=== PATIENT | male | born 1980 | race American Indian/Alaskan Native ===

== ENCOUNTER 2019-01-28 17:59 | Inpatient (IN) | payer SELFPAY ==
[2019-01-28] MEDS ORDERED: NACL 0.9% 1000 ML IV ONE (18:13)
--- NOTE | 2019-01-28 18:13 | Emergency Department Report ---
Blank Doc - Documentation Documentation: pt states that he N/V that began two days ago generalized body aches +fever for two weeks states he has been waking up in sweats no cough no SOB no abd pain pt c/o left sided cp that began today "states his heart feels like it trying to escape his chest" no sick contacts no sore throat no PMHx no allergies to medications no daily meds former smoker, quit last week occ drinker no drug use
[2019-01-28 18:58] LABS: Hematocrit 49.2 % (35.5-45.6); Hemoglobin 15.9 gm/dl (11.8-15.2); Mean Corpuscular HGB Conc 32 % (32-34); Platelet Count 236 K/mm3 (140-440); Red Blood Count 7.07 M/mm3 (3.65-5.03); Red Cell Distribution Width 14.7 % (13.2-15.2)
[2019-01-28 19:08] LABS: Mean Corpuscular Volume 70 fl (84-94)
--- NOTE | 2019-01-28 19:17 | Emergency Department Report ---
ED General Adult HPI - General Chief complaint: Nausea/Vomiting/Diarrhea Stated complaint: VOMITING BLOOD/N/V Time Seen by Provider: 01/28/19 18:10 Source: EMS Mode of arrival: Ambulatory Limitations: No Limitations - History of Present Illness Initial comments: Patient is a 38-year-old male that presents emergency room for nausea vomiting and vomiting blood and fever and chills abdominal pain. Patient is also complaining of chest pain. Patient states he's had nausea and vomiting for 2 days and today he vomited blood. Patient states it was bright red blood. Patient states his epigastric pain started today as well. Patient states his epigastric pain is a 3-4 out of 10 and is intermittent. Patient states his epigastric pain is better with rest and worse with eating or movement. Patient states he has not been able to hold anything down for 2 days. Patient states he has not taken anything for his fever or chills. He states his chest pain started today as well. Patient states chest pain is intermittent and is a 3 out of 10. Patient states chest pain is better with rest and worse with exertion and vomiting. -: Sudden Location: abdomen Radiation: non-radiation Severity scale (0 -10): 7 Quality: stabbing, aching Consistency: intermittent Improves with: rest Worsens with: eating, movement, other (vomiting) Associated Symptoms: fever/chills, nausea/vomiting. denies: confusion, chest pain, cough, diaphoresis, headaches, loss of appetite, rash, seizure, shortness of breath, syncope, weakness Treatments Prior to Arrival: none - Related Data Allergies Allergy/AdvReac Type Severity Reaction Status Date / Time No Known Allergies Allergy Verified 01/28/19 18:10 ED Review of Systems ROS: Stated complaint: VOMITING BLOOD/N/V Other details as noted in HPI Constitutional: chills, fever Eyes: denies: eye pain, eye discharge, vision change ENT: denies: ear pain, throat pain Respiratory: denies: cough, shortness of breath, wheezing Cardiovascular: chest pain. denies: palpitations Endocrine: no symptoms reported Gastrointestinal: abdominal pain, nausea, vomiting, constipation, hematemesis. denies: diarrhea Genitourinary: denies: urgency, dysuria Musculoskeletal: denies: back pain, joint swelling, arthralgia Skin: denies: rash, lesions Neurological: denies: headache, weakness, paresthesias Psychiatric: denies: anxiety, depression Hematological/Lymphatic: denies: easy bleeding, easy bruising ED Past Medical Hx - Past Medical History Previous Medical History?: No - Surgical History Past Surgical History?: No - Family History Family history: no significant - Social History Smoking Status: Current Every Day Smoker Substance Use Type: Alcohol ED Physical Exam - General Limitations: No Limitations General appearance: alert, in no apparent distress - Head Head exam: Present: atraumatic, normocephalic - Eye Eye exam: Present: normal appearance - ENT ENT exam: Present: mucous membranes moist - Neck Neck exam: Present: normal inspection - Respiratory Respiratory exam: Present: normal lung sounds bilaterally. Absent: respiratory distress, wheezes, rales - Cardiovascular Cardiovascular Exam: Present: regular rate, normal rhythm. Absent: systolic murmur, diastolic murmur, rubs, gallop - GI/Abdominal GI/Abdominal exam: Present: soft, tenderness (epigastric tenderness), normal bowel sounds - Rectal Rectal exam: Present: deferred - Extremities Exam Extremities exam: Present: normal inspection - Back Exam Back exam: Present: normal inspection - Neurological Exam Neurological exam: Present: alert, oriented X3 - Psychiatric Psychiatric exam: Present: normal affect, normal mood - Skin Skin exam: Present: warm, dry, intact, normal color. Absent: rash ED Course Vital Signs 01/28/19 01/28/19 01/28/19 18:10 19:45 22:55 Temperature 101.2 F H Pulse Rate 128 H 102 H 104 H Respiratory 16 18 18 Rate Blood Pressure 118/70 107/52 114/60 [Left] O2 Sat by Pulse 98 100 100 Oximetry 01/28/19 23:18 Temperature Pulse Rate 90 Respiratory 18 Rate Blood Pressure 108/62 [Left] O2 Sat by Pulse 100 Oximetry - Reevaluation(s) Reevaluation #1: Patient more comfortable. The patient was having some nausea and was given Zofran as resolved his nausea. 01/28/19 20:23 - Consultations Consultation #1: GI paged 01/28/19 22:[address] Duran, GI. Dr. Duran wants patient to have a PPI and be admitted to the hospitalist service and nothing by mouth after midnight. 01/28/19 22:38 Consultation #2: Hospitalist consulted for admission. Hospitalist to admit patient. Hospitalist to assume care patient. 01/28/19 22:40 ED Medical Decision Making - Lab Data Result diagrams: 01/28/19 23:23 01/28/19 18:34 - EKG Data -: EKG Interpreted by Me EKG shows normal: sinus rhythm, axis, intervals, QRS complexes, ST-T waves Rate: tachycardia - Radiology Data Radiology results: report reviewed PROCEDURE: CT ABDOMEN PELVIS WO CON TECHNIQUE: Computerized axial tomography of the abdomen and pelvis was performed without intravenous contrast. This study is performed without intravascular contrast material and its sensitivity for abdominal and pelvic pathology, including neoplasms, inflammation, abscess, free fluid, thrombosis, arterial dissection and infarction, is reduced compared with a contrast enhanced study. CT DOSE LENGTH PRODUCT: 1271.7 mGycm HISTORY: abd pain COMPARISONS: None . FINDINGS: Liver, spleen pancreas and adrenal glands are within normal limits. Bilateral kidneys demonstrate normal density without calculi or hydronephrosis. Aorta is of normal caliber. There is no free fluid or free air. Gallbladder is unremarkable. Small bowel loops are within normal limits. Appendix is normal. Vertebral height is normal. IMPRESSION: No acute intra-abdominal or pelvic pathology as visualized on this noncontrast study PROCEDURE: CT ANGIO CHEST TECHNIQUE: Computerized tomographic angiography of the chest was performed after the IV injection of iodinated nonionic contrast including image processing. The image data was postprocessed using 2-dimensional multiplanar reformatted (MPR) and 3-dimensional (MIP and/or volume rendered) techniques. Automated exposure control, adjustment of mA and/or kV according to patient size, or iterative reconstruction dose optimization techniques were utilized. CT DOSE LENGTH PRODUCT: 943.2 mGycm HISTORY: elevated d-dimer. cp COMPARISONS: None . FINDINGS: Visualization of fine detail in portions of the chest is limited by motion artifact. There is no evidence of infiltrate, pneumothorax or pleural fluid collection. The trachea and bronchi are patent. The heart appears to be upper limits of normal size to mildly enlarged. The thoracic aorta is normal caliber. There is no evidence of intrathoracic adenopathy. No filling defects are demonstrated within the pulmonary arteries to suggest the presence of pulmonary artery emboli. However, segmental pulmonary artery emboli could be missed or overcalled due to motion artifact. The visualized portion of the upper abdomen is unremarkable. The bony structures are notable for spondylitic change of the thoracic spine with multiple level canal stenosis. IMPRESSION: 1. Study somewhat degraded by motion artifact. 2. No evidence of an acute intrathoracic process. 3. No evidence of pulmonary artery emboli. However, segmental pulmonary artery emboli could be missed or overcalled due to motion artifact. 4. 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 - Medical Decision Making Patient is a 38-year-old male presents emergency room for multiple complaints. Patient complaints including chest pain, upper gastric pain, vomiting blood. Nausea and vomiting. GI consult. Patient admitted to the hospitalist service. Patient's labs unremarkable except for hyponatremia and elevated d-dimer. Patient is CT of the abdomen done negative. Patient had a CTA of the chest for the elevated d-dimer and chest pain and it was negative for PE.. - Differential Diagnosis chest pain. Abdominal pain. Vomiting blood.N/V. Gastritis Critical Care Time: Yes Critical care attestation.: If time is entered above; I have spent that time in minutes in the direct care o f this critically ill patient, excluding procedure time. Critical Care Time: 45 MINUTES ED Disposition Clinical Impression: Hematemesis with nausea, Dehydration Vomiting blood Qualifiers: Nausea presence: with nausea Qualified Code(s): K92.0 - Hematemesis Chest pain Qualifiers: Chest pain type: unspecified Qualified Code(s): R07.9 - Chest pain, unspecified Nausea & vomiting Qualifiers: Vomiting type: unspecified Vomiting Intractability: intractable Qualified Code(s): R11.2 - Nausea with vomiting, unspecified Abdominal pain Qualifiers: Abdominal location: epigastric Qualified Code(s): R10.13 - Epigastric pain Gastritis Qualifiers: Gastritis type: unspecified gastritis Chronicity: acute Gastritis bleeding: with bleeding Qualified Code(s): K29.01 - Acute gastritis with bleeding Disposition: 09 OP ADMIT IP TO THIS HOSP Is pt being admited?: Yes Does the pt Need Aspirin: No Condition: Critical Time of Disposition: 22:41
[2019-01-28 19:24] LABS: Alanine Aminotransferase 23 units/L (7-56); Albumin 3.2 g/dL (3.9-5); BUN/Creatinine Ratio 7; Blood Urea Nitrogen 8 mg/dL (9-20); Hemolysis Index 7
[2019-01-28] MEDS ORDERED: ZOFRAN IV ONE (20:09)
--- NOTE | 2019-01-28 20:19 | Cat Scan Report ---
PROCEDURE: CT ABDOMEN PELVIS WO CON TECHNIQUE: Computerized axial tomography of the abdomen and pelvis was performed without intravenous contrast. This study is performed without intravascular contrast material and its sensitivity for ab dominal and pelvic pathology, including neoplasms, inflammation, abscess, free fluid, thrombosis, art erial dissection and infarction, is reduced compared with a contrast enhanced study. CT DOSE LENGTH PRODUCT: 1271.7 mGycm HISTORY: abd pain COMPARISONS: None . FINDINGS: Liver, spleen pancreas and adrenal glands are within normal limits. Bilateral kidneys demonstrate nor mal density without calculi or hydronephrosis. Aorta is of normal caliber. There is no free fluid or free air. Gallbladder is unremarkable. Small bowel loops are within normal limits. Appendix is normal . Vertebral height is normal. IMPRESSION: No acute intra-abdominal or pelvic pathology as visualized on this noncontrast study This document is electronically signed by Emil French MD., Jan 28 2019 08:17:32 PM ET
--- NOTE | 2019-01-28 20:19 | XRay Report ---
PROCEDURE: XR CHEST 1V AP TECHNIQUE: Chest radiograph single view. HISTORY: CP COMPARISONS: None . FINDINGS: Heart: Normal. Mediastinum/Vessels: Normal. Lungs/Pleural space: Normal. Bony thorax: No acute osseous abnormality. Life support devices: None. IMPRESSION: No acute cardiopulmonary abnormality. This document is electronically signed by Emil French MD., Jan 28 2019 08:17:43 PM ET
[2019-01-28] MEDS ORDERED: NACL 0.9% 1000 ML 1,000 ML IV ONE (20:55)
[2019-01-28 21:09] LABS: Band Neutrophils # (Manual) 0.4 K/mm3; Total Cells Counted 100
[2019-01-28 21:10] LABS: Giant Platelets Few; Platelet Estimate Consistent w Auto
--- NOTE | 2019-01-28 21:58 | Cat Scan Report ---
PROCEDURE: CT ANGIO CHEST TECHNIQUE: Computerized tomographic angiography of the chest was performed after the IV injection of iodinated nonionic contrast including image processing. The image data was postprocessed using 2-di mensional multiplanar reformatted (MPR) and 3-dimensional (MIP and/or volume rendered) techniques. Au tomated exposure control, adjustment of mA and/or kV according to patient size, or iterative reconstr uction dose optimization techniques were utilized. CT DOSE LENGTH PRODUCT: 943.2 mGycm HISTORY: elevated d-dimer. cp COMPARISONS: None . FINDINGS: Visualization of fine detail in portions of the chest is limited by motion artifact. There is no evidence of infiltrate, pneumothorax or pleural fluid collection. The trachea and bronchi are patent. The heart appears to be upper limits of normal size to mildly enlarged. The thoracic aorta is normal caliber. There is no evidence of intrathoracic adenopathy. No filling defects are demonstrated within the pulmonary arteries to suggest the presence of pulmonar y artery emboli. However, segmental pulmonary artery emboli could be missed or overcalled due to matt on artifact. The visualized portion of the upper abdomen is unremarkable. The bony structures are notable for spondylitic change of the thoracic spine with multiple level charito l stenosis. IMPRESSION: 1. Study somewhat degraded by motion artifact. 2. No evidence of an acute intrathoracic process. 3. No evidence of pulmonary artery emboli. However, segmental pulmonary artery emboli could be missed or overcalled due to motion artifact. 4. 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 This document is electronically signed by Taty Honeycutt MD., Jan 28 2019 09:56:28 PM ET
[2019-01-28] MEDS ORDERED: PROTONIX IV ONE (22:41)
[2019-01-28] MEDS ORDERED: TYLENOL PO PRN (22:59)
[2019-01-28] MEDS ORDERED: MORPHINE IV PRN (22:59)
[2019-01-28] MEDS ORDERED: SODIUM CHLORIDE FLUSH SYRINGE 10 ML IV PRN (22:59)
[2019-01-28] MEDS ORDERED: ZOFRAN IV PRN (22:59)
--- NOTE | 2019-01-28 23:26 | History and Physical Report ---
History of Present Illness Date of examination: 01/28/19 History of present illness: 38 -year-old male with no medical problem comes to the emergency room with complaints of nausea and vomiting, vomiting blood since Thursday, he's had a total of 4 episodes. Also complaining of right upper quadrant pain, dull, intermittent for a few seconds, intensity 5/10, no radiation, cannot identify exacerbating or relieving factors. He's had this pain for one month more. Also complaining of chest pain, left substernal that started on his way to the hospital, stabbing, intermittent every 5 minutes, intensity 4/10, no radiation, associated with palpitation, no diaphoresis, shortness of breath Review of systems Constitutional: no weight loss, chills, fever Ears, eyes, nose, mouth and throat: no nasal congestion, no nasal discharge, no sinus pressure, no vision change, no red eye. Neck: No neck pain or rigidity. Cardiovascular: no palpitations, chest pain Respiratory: no cough, shortness of breath Gastrointestinal: no hematochezia, abdominal pain Genitourinary : no frequency , no hematuria Musculoskeletal: no joint swelling or muscle ache Integumentary: no rash, no pruritis Neurological: no parathesias, no focal weakness Endocrine: no cold or heat intolerance, no polyuria or polydipsia Hematologic/Lymphatic: no easy bruising, no easy bleeding, no gland swelling Allergic/Immunologic: no urticaria, no angioedema. PAST MEDICAL HISTORY:none PAST SURGICAL HISTORY: none SOCIAL HISTORY: +alcohol, + marijuana, quit tobacco 1 week ago FAMILY HISTORY: Hypertension Medications and Allergies Allergies Allergy/AdvReac Type Severity Reaction Status Date / Time No Known Allergies Allergy Verified 01/28/19 18:10 Home Medications Medication Instructions Recorded Confirmed Last Taken Type Pantoprazole [Protonix] 40 mg PO QDAY #30 tablet 01/30/19 Unknown Rx Active Meds: Active Medications Acetaminophen (Tylenol) 650 mg PO Q4H PRN PRN Reason: Pain MILD(1-3)/Fever >100.5/OMER Sodium Chloride (Nacl 0.9% 1000 Ml) 1,000 mls @ 150 mls/hr IV DIRECT TERESA Morphine Sulfate (Morphine) 2 mg IV Q4H PRN PRN Reason: Pain, Moderate (4-6) Ondansetron HCl (Zofran) 4 mg IV Q4H PRN PRN Reason: Nausea And Vomiting Pantoprazole Sodium (Protonix) 40 mg IV BID TERESA Sodium Chloride (Sodium Chloride Flush Syringe 10 Ml) 10 ml IV BID TERESA Sodium Chloride (Sodium Chloride Flush Syringe 10 Ml) 10 ml IV PRN PRN PRN Reason: LINE FLUSH Exam - Physical Exam Narrative exam: General Apperance: The patient lying in bed, breathing comfortable HEENT: Normocephalic, atraumatic. Pupils equally round and reactive to light, EOMI, no sclericterus or JVD or thyromegaly or nodule. , no carotid bruit, mucous membranes moist, no exudate or erythema Heart: S1-S2, regular is rhythm Lungs: Clear to auscultation bilaterally, breathing comfortable Abdomen: Positive bowel sounds, soft, nontender, nondistended, no organomegaly Extremities: No edema cyanosis clubbing Skin: no rash, nodule, warm and dry Neuro: cranial nerves 2-12 intact, speech is fluent, motor/sensory intact - Constitutional Vitals: Temp Pulse Resp BP Pulse Ox 101.2 F H 104 H 18 114/60 100 01/28/19 18:10 01/28/19 22:55 01/28/19 22:55 01/28/19 22:55 01/28/19 22:55 Results - Labs CBC & Chem 7: 01/30/19 07:55 01/30/19 07:55 Labs: Abnormal lab results 01/28/19 01/28/19 01/28/19 Range/Units 18:34 18:34 18:34 RBC 7.07 H (3.65-5.03) M/mm3 Hgb 15.9 H (11.8-15.2) gm/dl Hct 49.2 H (35.5-45.6) % MCV 70 L (84-94) fl MCH 23 L (28-32) pg Lymphocytes % (Manual) 36.0 H (13.4-35.0) % Monocytes % (Manual) 12.0 H (0.0-7.3) % Monocytes # (Manual) 1.3 H (0.0-0.8) K/mm3 D-Dimer 1506.08 H (0-234) ng/mlDDU Sodium 132 L (137-145) mmol/L BUN 8 L (9-20) mg/dL Glucose 151 H (75-100) mg/dL Calcium 8.0 L (8.4-10.2) mg/dL Albumin 3.2 L (3.9-5) g/dL - Imaging and Cardiology CT scan - abdomen: report reviewed CT scan - chest: report reviewed CT scan - pelvis: report reviewed Assessment and Plan Assessment Hematemesis Chest pain SIRS Abdominal pain, nonspecific Plan Admit to medicine Start IV fluids, Protonix, check serial hemoglobin Consult GI, check cardiac enzymes, stress test, UA DVT prophylaxis, start emperic antibiotic, IV morphine
[2019-01-28 23:30] LABS: Hematocrit 42.1 % (35.5-45.6); Hemoglobin 14.1 gm/dl (11.8-15.2)
[2019-01-28 23:47] LABS: Creatine Kinase MB 1.3 ng/mL (0.0-4.0)
[2019-01-29] MEDS ORDERED: ZOSYN/NS 4.5GM/100ML 4.5 GM/100 ML VIAL IV ONE (00:40)
[2019-01-29] MEDS: ZOSYN/NS 4.5GM/100ML 4.5 GM/100 ML VIAL IV SCH ×4 (00:51→21:38)
[2019-01-29 03:13] LABS: Hematocrit 44.6 % (35.5-45.6); Hemoglobin 14.3 gm/dl (11.8-15.2); Mean Corpuscular HGB Conc 32 % (32-34); Platelet Count 230 K/mm3 (140-440); Red Blood Count 6.39 M/mm3 (3.65-5.03); Red Cell Distribution Width 14.8 % (13.2-15.2)
[2019-01-29 03:35] LABS: Mean Corpuscular Volume 70 fl (84-94)
[2019-01-29 03:42] LABS: BUN/Creatinine Ratio 8; Blood Urea Nitrogen 9 mg/dL (9-20); Calcium 8.1 mg/dL (8.4-10.2); Hemolysis Index 2
[2019-01-29] MEDS: NACL 0.9% 1000 ML 1,000 ML IV SCH ×2 (04:05→14:17)
[2019-01-29 04:49] LABS: Creatine Kinase MB 1.3 ng/mL (0.0-4.0)
[2019-01-29 07:26] LABS: Hematocrit 41.7 % (35.5-45.6); Hemoglobin 13.8 gm/dl (11.8-15.2)
[2019-01-29] MEDS ORDERED: LEXISCAN IV ONE ×2 (08:11→08:23)
[2019-01-29 09:17] LABS: Band Neutrophils # (Manual) 0.2 K/mm3; Basophils % (Manual) 0 % (0.0-1.8); Total Cells Counted 100
[2019-01-29 09:18] LABS: Anisocytosis 1+
--- NOTE | 2019-01-29 10:10 | Event Note ---
Date: 01/29/19 Consult received. Patient off the floor for stress test at the time of visit. Labs/chart reviewed. Will follow-up at later time with full consult to follow.
[2019-01-29] MEDS: PROTONIX IV SCH ×2 (10:47→21:38)
[2019-01-29] MEDS: SODIUM CHLORIDE FLUSH SYRINGE 10 ML IV SCH ×2 (10:47→21:38)
--- NOTE | 2019-01-29 11:38 | Progress Note ---
Assessment and Plan Assessment and plan: --Hematemesis; no new episodes of GI bleeding H&H stable, closely monitor, pending GI evaluation Clear liquids and advance as tolerated NPO Midnight for possible GI procedure tomorrow --Atypical Chest pain; sress test is scheduled for today Continue current cardiac medications, follow stress --SIRS: per criteria --Abdominal pain, nonspecific; improved CT abdominal pain acute abnormalities noted --Moderate malnutrition/hypoalbuminemia; supportive care Nutrition supplements --Obesity BMI 33.4, advised weight reduction and medically stable --DVT prophylaxis SCDs, no pharmacologic anticoagulation As patient has GI bleeding Monitor closely and adjust management as needed; History Interval history: Patient seen and examined medical records reviewed Patient was admitted with hematemesis and atypical chest pain No new episodes of hematemesis since admission Patient underwent stress test Patient denies chest pain or shortness of breath Vital signs reviewed Hospitalist Physical - Constitutional Vitals: Temp Pulse Resp BP Pulse Ox 98.6 F 91 H 18 125/77 95 01/29/19 08:37 01/29/19 04:14 01/29/19 08:37 01/29/19 08:37 01/29/19 04:14 General appearance: Present: no acute distress, well-nourished - EENT Eyes: Present: PERRL, EOM intact - Neck Neck: Present: supple, normal ROM - Respiratory Respiratory effort: normal Respiratory: bilateral: diminished, negative: rales, rhonchi, wheezing - Cardiovascular Rhythm: regular Heart Sounds: Present: S1 & S2 - Extremities Extremities: no ischemia, No edema - Abdominal General gastrointestinal: soft, non-tender, non-distended, normal bowel sounds - Integumentary Integumentary: Present: clear, warm - Psychiatric Psychiatric: appropriate mood/affect, cooperative - Neurologic Neurologic: CNII-XII intact, moves all extremities Results - Labs CBC & Chem 7: 01/29/19 07:15 01/29/19 02:59 Labs: Laboratory Last Values WBC 12.4 K/mm3 (4.5-11.0) H 01/29/19 02:59 RBC 6.39 M/mm3 (3.65-5.03) H 01/29/19 02:59 Hgb 13.8 gm/dl (11.8-15.2) 01/29/19 07:15 Hct 41.7 % (35.5-45.6) 01/29/19 07:15 MCV 70 fl (84-94) L 01/29/19 02:59 MCH 22 pg (28-32) L 01/29/19 02:59 MCHC 32 % (32-34) 01/29/19 02:59 RDW 14.8 % (13.2-15.2) 01/29/19 02:59 Plt Count 230 K/mm3 (140-440) 01/29/19 02:59 [place] % (Auto) Tobacco Sieve Operator 01/29/19 02:59 Lymph # Tobacco Sieve Operator 01/29/19 02:59 Add Manual Diff Complete 01/29/19 02:59 Total Counted 100 01/29/19 02:59 Seg Neutrophils % Tobacco Sieve Operator 01/29/19 02:59 Seg Neuts % (Manual) 39.0 % (40.0-70.0) L 01/29/19 02:59 2.0 % 01/29/19 02:59 35.0 % (13.4-35.0) 01/29/19 02:59 Reactive Lymphs % (Man) 2.0 % 01/29/19 02:59 18.0 % (0.0-7.3) H 01/29/19 02:59 1.0 % (0.0-4.3) 01/29/19 02:59 0 % (0.0-1.8) 01/29/19 02:59 3.0 % 01/29/19 02:59 0 % 01/29/19 02:59 0 % 01/29/19 02:59 0 % 01/29/19 02:59 Nucleated RBC % Not Reportable 01/29/19 02:59 Seg Neutrophils # Man 4.8 K/mm3 (1.8-7.7) 01/29/19 02:59 Band Neutrophils # 0.2 K/mm3 01/29/19 02:59 4.3 K/mm3 (1.2-5.4) 01/29/19 02:59 Abs React Lymphs (Man) 0.2 K/mm3 01/29/19 02:59 2.2 K/mm3 (0.0-0.8) H 01/29/19 02:59 0.1 K/mm3 (0.0-0.4) 01/29/19 02:59 0.0 K/mm3 (0.0-0.1) 01/29/19 02:59 0.4 K/mm3 01/29/19 02:59 0.0 K/mm3 01/29/19 02:59 0.0 K/mm3 01/29/19 02:59 Blast Cells # 0.0 K/mm3 01/29/19 02:59 WBC Morphology Not Reportable 01/29/19 02:59 Hypersegmented Neuts Not Reportable 01/29/19 02:59 Hyposegmented Neuts Not Reportable 01/29/19 02:59 Hypogranular Neuts Not Reportable 01/29/19 02:59 Not Reportable 01/29/19 02:59 Not Reportable 01/29/19 02:59 Not Reportable 01/29/19 02:59 Not Reportable 01/29/19 02:59 Not Reportable 01/29/19 02:59 Not Reportable 01/29/19 02:59 Appears normal 01/29/19 02:59 Not Reportable 01/29/19 02:59 Plt Clumps, EDTA Not Reportable 01/29/19 02:59 Not Reportable 01/29/19 02:59 Not Reportable 01/29/19 02:59 Not Reportable 01/29/19 02:59 Plt Morphology Comment Not Reportable 01/29/19 02:59 RBC Morphology Not Reportable 01/29/19 02:59 Dimorphic RBCs Not Reportable 01/29/19 02:59 Not Reportable 01/29/19 02:59 Not Reportable 01/29/19 02:59 Not Reportable 01/29/19 02:59 1+ 01/29/19 02:59 Not Reportable 01/29/19 02:59 Not Reportable 01/29/19 02:59 Not Reportable 01/29/19 02:59 Not Reportable 01/29/19 02:59 Not Reportable 01/29/19 02:59 Not Reportable 01/29/19 02:59 Not Reportable 01/29/19 02:59 Not Reportable 01/29/19 02:59 Not Reportable 01/29/19 02:59 Not Reportable 01/29/19 02:59 Not Reportable 01/29/19 02:59 Not Reportable 01/29/19 02:59 Not Reportable 01/29/19 02:59 Not Reportable 01/29/19 02:59 Not Reportable 01/29/19 02:59 Acanthocytes (Spur) Not Reportable 01/29/19 02:59 Rouleaux Not Reportable 01/29/19 02:59 Not Reportable 01/29/19 02:59 Not Reportable 01/29/19 02:59 Not Reportable 01/29/19 02:59 Not Reportable 01/29/19 02:59 Hem Pathologist Commnt No 01/29/19 02:59 1506.08 ng/mlDDU (0-234) H 01/28/19 18:34 Sodium 137 mmol/L (137-145) 01/29/19 02:59 Potassium 4.5 mmol/L (3.6-5.0) 01/29/19 02:59 Chloride 100.9 mmol/L (98-107) 01/29/19 02:59 Carbon Dioxide 24 mmol/L (22-30) 01/29/19 02:59 17 mmol/L 01/29/19 02:59 BUN 9 mg/dL (9-20) 01/29/19 02:59 1.2 mg/dL (0.8-1.5) 01/29/19 02:59 Estimated GFR > 60 ml/min 01/29/19 02:59 8 % 01/29/19 02:59 Glucose 119 mg/dL (75-100) H 01/29/19 02:59 Lactic Acid 1.40 mmol/L (0.7-2.0) 01/28/19 21:01 Calcium 8.1 mg/dL (8.4-10.2) L 01/29/19 02:59 0.40 mg/dL (0.1-1.2) 01/28/19 18:34 AST 38 units/L (5-40) 01/28/19 18:34 ALT 23 units/L (7-56) 01/28/19 18:34 63 units/L (35-129) 01/28/19 18:34 175 units/L (55-170) H 01/29/19 04:35 CK-MB (CK-2) 1.3 ng/mL (0.0-4.0) 01/29/19 04:35 CK-MB (CK-2) Rel Index 0.7 (0-4) 01/29/19 04:35 < 0.010 ng/mL (0.00-0.029) 01/29/19 04:35 6.7 g/dL (6.3-8.2) 01/28/19 18:34 3.2 g/dL (3.9-5) L 01/28/19 18:34 0.9 % 01/28/19 18:34 39 units/L (13-60) 01/28/19 18:34 Active Medications - Current Medications Current Medications: Generic Name Dose Route Start Last Admin Trade Name Freq PRN Reason Stop Dose Admin Acetaminophen 650 mg 01/28/19 22:59 Tylenol PO Q4H PRN Pain MILD(1-3)/Fever >100.5/OMER Sodium Chloride 1,000 mls @ 150 mls/hr 01/28/19 23:00 01/29/19 04:05 Nacl 0.9% 1000 Ml IV 150 mls/hr DIRECT TERESA Administration Piperacillin Sod/Tazobactam Sod 4.5 gm in 100 mls @ 200 mls/hr 01/28/19 23:45 01/29/19 05:36 Zosyn/Ns 4.5gm/100ml IV 200 mls/hr Q8HR TERESA Administration Protocol Morphine Sulfate 2 mg 01/28/19 22:59 Morphine IV Q4H PRN Pain, Moderate (4-6) Ondansetron HCl 4 mg 01/28/19 22:59 Zofran IV Q4H PRN Nausea And Vomiting Pantoprazole Sodium 40 mg 01/29/19 10:00 01/29/19 10:47 Protonix IV 40 mg BID TERESA Administration Sodium Chloride 10 ml 01/29/19 10:00 01/29/19 10:47 Sodium Chloride Flush Syringe 10 Ml IV 10 ml BID TERESA Administration Sodium Chloride 10 ml 01/28/19 22:59 Sodium Chloride Flush Syringe 10 Ml IV PRN PRN LINE FLUSH
[2019-01-30] MEDS: ZOSYN/NS 4.5GM/100ML 4.5 GM/100 ML VIAL IV SCH (05:35)
[2019-01-30 08:13] LABS: Hematocrit 39.1 % (35.5-45.6); Hemoglobin 12.8 gm/dl (11.8-15.2); Mean Corpuscular HGB Conc 33 % (32-34); Platelet Count 223 K/mm3 (140-440); Red Blood Count 5.66 M/mm3 (3.65-5.03); Red Cell Distribution Width 14.8 % (13.2-15.2)
[2019-01-30 08:16] LABS: Mean Corpuscular Volume 69 fl (84-94)
[2019-01-30 08:30] LABS: BUN/Creatinine Ratio 5; Blood Urea Nitrogen 6 mg/dL (9-20); Calcium 7.8 mg/dL (8.4-10.2); Chol/HDL Ratio 5.37 %; HDL Cholesterol 16 mg/dL (40-59); Hemolysis Index 1; LDL Cholesterol,Direct 41 mg/dL (50-130)
--- NOTE | 2019-01-30 08:44 | Progress Note ---
Assessment and Plan Assessment and plan: --Hematemesis; no new episodes of GI bleeding H&H dropped, closely monitor, pending GI evaluation --Acute blood loss; hemoglobin dropped from 15.9-12.8 Closely monitor --Atypical Chest pain; s/p sress test , pending report Continue current cardiac medications --SIRS: per criteria --Abdominal pain, nonspecific; improved CT abdominal pain acute abnormalities noted --Moderate malnutrition/hypoalbuminemia albumin 3.2; supportive care Nutrition supplements --Obesity BMI 33.4, advised weight reduction and medically stable --DVT prophylaxis SCDs, no pharmacologic anticoagulation As patient has GI bleeding Monitor closely and adjust management as needed; Hospitalist Physical - Constitutional Vitals: Temp Pulse Resp BP Pulse Ox 98.6 F 81 18 96/57 95 01/30/19 07:27 01/30/19 07:27 01/30/19 07:27 01/30/19 07:27 01/30/19 07:27 General appearance: Present: no acute distress, well-nourished Results - Labs CBC & Chem 7: 01/30/19 07:55 01/30/19 07:55 Labs: Laboratory Last Values WBC 8.5 K/mm3 (4.5-11.0) 01/30/19 07:55 RBC 5.66 M/mm3 (3.65-5.03) H 01/30/19 07:55 Hgb 12.8 gm/dl (11.8-15.2) 01/30/19 07:55 Hct 39.1 % (35.5-45.6) 01/30/19 07:55 MCV 69 fl (84-94) L 01/30/19 07:55 MCH 23 pg (28-32) L 01/30/19 07:55 MCHC 33 % (32-34) 01/30/19 07:55 RDW 14.8 % (13.2-15.2) 01/30/19 07:55 Plt Count 223 K/mm3 (140-440) 01/30/19 07:55 Coffee % (Auto) Candy Dipper 01/30/19 07:55 Lymph # Candy Dipper 01/29/19 02:59 Add Manual Diff Complete 01/29/19 02:59 Total Counted 100 01/29/19 02:59 Seg Neutrophils % Candy Dipper 01/29/19 02:59 Seg Neuts % (Manual) 39.0 % (40.0-70.0) L 01/29/19 02:59 2.0 % 01/29/19 02:59 35.0 % (13.4-35.0) 01/29/19 02:59 Reactive Lymphs % (Man) 2.0 % 01/29/19 02:59 18.0 % (0.0-7.3) H 01/29/19 02:59 1.0 % (0.0-4.3) 01/29/19 02:59 0 % (0.0-1.8) 01/29/19 02:59 3.0 % 01/29/19 02:59 0 % 01/29/19 02:59 0 % 01/29/19 02:59 0 % 01/29/19 02:59 Nucleated RBC % Not Reportable 01/29/19 02:59 Seg Neutrophils # Man 4.8 K/mm3 (1.8-7.7) 01/29/19 02:59 Band Neutrophils # 0.2 K/mm3 01/29/19 02:59 4.3 K/mm3 (1.2-5.4) 01/29/19 02:59 Abs React Lymphs (Man) 0.2 K/mm3 01/29/19 02:59 2.2 K/mm3 (0.0-0.8) H 01/29/19 02:59 0.1 K/mm3 (0.0-0.4) 01/29/19 02:59 0.0 K/mm3 (0.0-0.1) 01/29/19 02:59 0.4 K/mm3 01/29/19 02:59 0.0 K/mm3 01/29/19 02:59 0.0 K/mm3 01/29/19 02:59 Blast Cells # 0.0 K/mm3 01/29/19 02:59 WBC Morphology TNR 01/30/19 07:55 Hypersegmented Neuts Not Reportable 01/29/19 02:59 Hyposegmented Neuts Not Reportable 01/29/19 02:59 Hypogranular Neuts Not Reportable 01/29/19 02:59 Not Reportable 01/29/19 02:59 Not Reportable 01/29/19 02:59 Not Reportable 01/29/19 02:59 Not Reportable 01/29/19 02:59 Not Reportable 01/29/19 02:59 Not Reportable 01/29/19 02:59 Appears normal 01/29/19 02:59 Not Reportable 01/29/19 02:59 Plt Clumps, EDTA Not Reportable 01/29/19 02:59 Not Reportable 01/29/19 02:59 Not Reportable 01/29/19 02:59 Not Reportable 01/29/19 02:59 Plt Morphology Comment Not Reportable 01/29/19 02:59 RBC Morphology Not Reportable 01/29/19 02:59 Dimorphic RBCs Not Reportable 01/29/19 02:59 Not Reportable 01/29/19 02:59 Not Reportable 01/29/19 02:59 Not Reportable 01/29/19 02:59 1+ 01/29/19 02:59 Not Reportable 01/29/19 02:59 Not Reportable 01/29/19 02:59 Not Reportable 01/29/19 02:59 Not Reportable 01/29/19 02:59 Not Reportable 01/29/19 02:59 Not Reportable 01/29/19 02:59 Not Reportable 01/29/19 02:59 Not Reportable 01/29/19 02:59 Not Reportable 01/29/19 02:59 Not Reportable 01/29/19 02:59 Not Reportable 01/29/19 02:59 Not Reportable 01/29/19 02:59 Not Reportable 01/29/19 02:59 Not Reportable 01/29/19 02:59 Not Reportable 01/29/19 02:59 Acanthocytes (Spur) Not Reportable 01/29/19 02:59 Rouleaux Not Reportable 01/29/19 02:59 Not Reportable 01/29/19 02:59 Not Reportable 01/29/19 02:59 Not Reportable 01/29/19 02:59 Not Reportable 01/29/19 02:59 Hem Pathologist Commnt No 01/29/19 02:59 1506.08 ng/mlDDU (0-234) H 01/28/19 18:34 Sodium 134 mmol/L (137-145) L 01/30/19 07:55 Potassium 4.5 mmol/L (3.6-5.0) 05/26/19 07:55 Chloride 99.2 mmol/L (98-107) 01/30/19 07:55 Carbon Dioxide 27 mmol/L (22-30) 01/30/19 07:55 12 mmol/L 01/30/19 07:55 BUN 6 mg/dL (9-20) L 01/30/19 07:55 1.1 mg/dL (0.8-1.5) 01/30/19 07:55 Estimated GFR > 60 ml/min 01/30/19 07:55 5 % 01/30/19 07:55 Glucose 105 mg/dL (75-100) H 01/30/19 07:55 Lactic Acid 1.40 mmol/L (0.7-2.0) 01/28/19 21:01 Calcium 7.8 mg/dL (8.4-10.2) L 01/30/19 07:55 0.40 mg/dL (0.1-1.2) 01/28/19 18:34 AST 38 units/L (5-40) 01/28/19 18:34 ALT 23 units/L (7-56) 01/28/19 18:34 63 units/L (35-129) 01/28/19 18:34 175 units/L (55-170) H 01/29/19 04:35 CK-MB (CK-2) 1.3 ng/mL (0.0-4.0) 01/29/19 04:35 CK-MB (CK-2) Rel Index 0.7 (0-4) 01/29/19 04:35 < 0.010 ng/mL (0.00-0.029) 01/29/19 04:35 6.7 g/dL (6.3-8.2) 01/28/19 18:34 3.2 g/dL (3.9-5) L 01/28/19 18:34 0.9 % 01/28/19 18:34 Triglycerides 149 mg/dL (2-149) 01/30/19 07:55 Cholesterol 86 mg/dL (50-199) 01/30/19 07:55 41 mg/dL (50-130) L 01/30/19 07:55 16 mg/dL (40-59) L 01/30/19 07:55 5.37 % 01/30/19 07:55 39 units/L (13-60) 01/28/19 18:34 Active Medications - Current Medications Current Medications: Generic Name Dose Route Start Last Admin Trade Name Freq PRN Reason Stop Dose Admin Acetaminophen 650 mg 01/28/19 22:59 01/29/19 21:40 Tylenol PO 650 mg Q4H PRN Administration Pain MILD(1-3)/Fever >100.5/OMER Piperacillin Sod/Tazobactam Sod 4.5 gm in 100 mls @ 200 mls/hr 01/28/19 23:45 01/30/19 05:35 Zosyn/Ns 4.5gm/100ml IV 200 mls/hr Q8HR TERESA Administration Protocol Morphine Sulfate 2 mg 01/28/19 22:59 Morphine IV Q4H PRN Pain, Moderate (4-6) Ondansetron HCl 4 mg 01/28/19 22:59 Zofran IV Q4H PRN Nausea And Vomiting Pantoprazole Sodium 40 mg 01/29/19 10:00 01/29/19 21:38 Protonix IV 40 mg BID TERESA Administration Sodium Chloride 10 ml 01/29/19 10:00 01/29/19 21:38 Sodium Chloride Flush Syringe 10 Ml IV 10 ml BID TERESA Administration Sodium Chloride 10 ml 01/28/19 22:59 Sodium Chloride Flush Syringe 10 Ml IV PRN PRN LINE FLUSH
--- NOTE | 2019-01-30 10:22 | Gastroenterology Consultation ---
History of Present Illness - Reason for Consult Consult date: 01/30/19 Hematemesis Requesting physician: EV HARDWICK - History of Present Illness Mr Benson is a 38 yo aam who presented with 2-3 day history of n/v/diaphoresis/chest pain. pt reports having episodes of dark appearing blood with emesis episodes. He has had no further episodes since admission. No prior similar symptoms. H/o reflux, denies nsaid use. No known h/o liver disease. Underwent stress test yesterday (results pending). Denies melena or abdominal pain. H/H remains stable. Reports improved overall symptoms. Past History Past Medical History: No medical history Past Surgical History: No surgical history Social history: other (+ alcohol use) Family history: hypertension Medications and Allergies Allergies Allergy/AdvReac Type Severity Reaction Status Date / Time No Known Allergies Allergy Verified 01/28/19 18:10 Home Medications Medication Instructions Recorded Confirmed Last Taken Type No Known Home Medications [No 01/29/19 01/29/19 Unknown History Reported Home Medications] Active Meds: Active Medications Acetaminophen (Tylenol) 650 mg PO Q4H PRN PRN Reason: Pain MILD(1-3)/Fever >100.5/OMER Last Admin: 01/29/19 21:40 Dose: 650 mg Documented by: Piperacillin Sod/Tazobactam Sod (Zosyn/Ns 4.5gm/100ml) 4.5 gm in 100 mls @ 200 mls/hr IV Q8HR [facility]; Protocol Last Admin: 01/30/19 05:35 Dose: 200 mls/hr Documented by: Morphine Sulfate (Morphine) 2 mg IV Q4H PRN PRN Reason: Pain, Moderate (4-6) Ondansetron HCl (Zofran) 4 mg IV Q4H PRN PRN Reason: Nausea And Vomiting Pantoprazole Sodium (Protonix) 40 mg IV BID [facility] Last Admin: 01/29/19 21:38 Dose: 40 mg Documented by: Sodium Chloride (Sodium Chloride Flush Syringe 10 Ml) 10 ml IV BID [facility] Last Admin: 01/29/19 21:38 Dose: 10 ml Documented by: Sodium Chloride (Sodium Chloride Flush Syringe 10 Ml) 10 ml IV PRN PRN PRN Reason: LINE FLUSH Review of Systems - Review of Systems All systems: negative (per HPI) Exam - Constitutional Vital Signs: Temp Pulse Resp BP Pulse Ox 98.6 F 81 18 96/57 99 01/30/19 07:27 01/30/19 07:27 01/30/19 07:27 01/30/19 07:27 01/30/19 08:34 General appearance: no acute distress, obese - EENT Eyes: PERRL, EOM intact ENT: hearing intact - Neck Neck: supple, normal ROM - Respiratory Respiratory effort: normal Respiratory: left: CTA - Cardiovascular Rhythm: regular Heart Sounds: Present: S1 & S2 Extremities: No edema - Gastrointestinal General gastrointestinal: Present: soft, non-tender, non-distended - Neurologic Neurological: alert and oriented x3 - Psychiatric Psychiatric: appropriate mood/affect - Labs CBC & Chem 7: 01/30/19 07:55 01/30/19 07:55 Lab Results: Laboratory Results - last 24 hr 01/30/19 01/30/19 01/30/19 07:55 07:55 07:55 WBC 8.5 RBC 5.66 H Hgb 12.8 Hct 39.1 MCV 69 L MCH 23 L MCHC 33 RDW 14.8 Plt Count 223 [place] % (Auto) Sales Executive WBC Morphology TNR Sodium 134 L Potassium 4.5 Chloride 99.2 Carbon Dioxide 27 Anion Gap 12 BUN 6 L Creatinine 1.1 Estimated GFR > 60 BUN/Creatinine Ratio 5 Glucose 105 H Calcium 7.8 L Triglycerides 149 Cholesterol 86 LDL Cholesterol Direct 41 L HDL Cholesterol 16 L Cholesterol/HDL Ratio 5.37 Assessment and Plan 1. Nausea/vomiting with reported hematemesis - dark appearing scant blood with emesis episodes per pt prior to admission. no further episodes since arrival. H/H remains normal. BUN normal. low suspicion for ugi bleeding at this time. 2. Chest pain - s/p stress test with results pending -cont PPI daily for reflux sx's. given improved symptoms and stable labs, will hold off on endoscopy. Okay for po intake from gi stand point. Pt instructed to follow-up in GI clinic in ~2 weeks. Will sign off, please call as needed or with questions.
--- NOTE | 2019-01-30 10:47 | Discharge Summary ---
Providers - Providers Date of Admission: 01/28/19 22:59 Date of discharge: 01/30/19 Attending physician: EV HARDWICK 01/28/19 22:44 Consult to Physician [CONS] Routine Comment: Consulting Provider: BLANE TORRES Physician Instructions: Reason For Exam: VOMITING BLOOD. N.V GASTRITIS Primary care physician: [facility], Hospitalization Reason for admission: Nausea vomiting, hematemesis for the last 1-2 days Condition: Stable Pertinent studies: Chest x-ray; no acute abnormality CT abdomen and pelvis; no acute abnormalities CTA chest; motion artifacts No acute abnormality intrathoracic No evidence of PE Spondylitis changes thoracic spine multiple level canal stenosis and chronic Hospital course: 38-year-old male patient with no significant past medical history who was admitted through emergency room with nausea or vomiting and hematemesis of 1 day duration, Patient had 4 episodes of hematemesis, also complains of atypical chest pain Admitted to telemetry, symptomatically managed, extensively evaluated as mentioned above,Stress test was negative for reversible ischemia, normal LV function Patient did not have new episodes of hematemesis during hospital stay Evaluated by GI, as patient does not have any new episodes and hemodynamically stable Hemoglobin and hematocrit stable, patient is cleared for discharge on Protonix An follow-up with GI and cardiology as outpatient for further evaluation and management Today patient is comfortable no symptoms vital signs stable Name discharge home on oral Protonix Discharge diagnosis; --Hematemesis; no new episodes of GI bleeding H&H dropped, closely monitor, GI evaluated, outpatient follow-up, Cleared for discharge --Acute blood loss; hemoglobin dropped from 15.9-12.8 Remained stable --Atypical Chest pain; negative stress test[report given by ] Normal LV function, cleared for discharge --SIRS: per criteria noninfectious resolved --Abdominal pain, nonspecific; abdominal CT negative Symptoms resolved --Moderate malnutrition/hypoalbuminemia albumin 3.2; supportive care Nutrition supplements --Obesity BMI 33.4, advised weight reduction and medically stable --DVT prophylaxis SCDs, no pharmacologic anticoagulation As patient has GI bleeding Disposition: TO HOME OR SELFCARE Time spent for discharge: 32 min Core Measure Documentation - Palliative Care Palliative Care/ Comfort Measures: Not Applicable - Core Measures Any of the following diagnoses?: none Exam - Constitutional Vitals: Temp Pulse Resp BP Pulse Ox 98.6 F 81 18 96/57 99 05/26/19 07:27 01/30/19 07:27 01/30/19 07:27 01/30/19 07:27 01/30/19 08:34 General appearance: Present: no acute distress, well-nourished - EENT Eyes: Present: PERRL, EOM intact - Neck Neck: Present: supple, normal ROM - Respiratory Respiratory effort: normal Respiratory: negative: rales, rhonchi, wheezing - Cardiovascular Rhythm: regular Heart Sounds: Present: S1 & S2 - Extremities Extremities: no ischemia, No edema - Abdominal General gastrointestinal: Present: soft, non-tender, non-distended, normal bowel sounds - Integumentary Integumentary: Present: clear, warm - Musculoskeletal Musculoskeletal: strength equal bilaterally - Psychiatric Psychiatric: appropriate mood/affect, cooperative - Neurologic Neurologic: moves all extremities Plan Activity: no restrictions Diet: regular Additional Instructions: Advance diet as tolerated. Follow-up with private GI in 2 weeks Follow up with: SIDNEY MARTINEZ MD [Primary Care Provider] - 3-5 Days BLANE TORRES MD [Staff Physician] - 7 Days Prescriptions: Pantoprazole [Protonix] 40 mg PO QDAY #30 tablet
[2019-01-30 10:48] LABS: Anisocytosis 1+; Basophils % (Manual) 0 % (0.0-1.8); Ovalocytes Few; Platelet Estimate Consistent w Auto; Total Cells Counted 100
[2019-01-30] MEDS: PROTONIX IV SCH (10:54)
[2019-01-30] MEDS: SODIUM CHLORIDE FLUSH SYRINGE 10 ML IV SCH (10:54)
[2019-01-30] MEDS ORDERED: NACL 0.9% 250ML 250 ML IV ONE (11:14)
[2019-01-30 13:24] VITALS: BP 106/55
--- NOTE | 2019-02-02 00:33 | Treadmill Report ---
ORDERING PHYSICIAN: Fidelia Land MD INDICATION: Chest pain. FINDINGS: This is a suboptimal perfusion scan due to excessive overlying liver uptake shadowing the inferior wall of the myocardium. There is no scintigraphic evidence of myocardial ischemia, however. The left ventricular size is grossly normal. The left ventricular wall motion is also grossly normal. The left ventricular ejection fraction is visually within normal limits. IMPRESSION: 1. Suboptimal perfusion scan limited by excessive liver uptake shadowing the inferior wall of the myocardium, yet there is no definite evidence of myocardial ischemia. 2. The left ventricle is grossly normal in size and systolic function. 3. Clinical correlation is recommended. JOB# [id number] DAYAMI/MIKE
== END 2019-01-30 13:00 | disposition home or self-care (01) | DRG 378 ==
LOC: ED 17:59 → 4A 22:59
PROVIDERS: ADMIT Internal Medicine; ATTEND Internal Medicine
DX: K29.01 Acute gastritis with bleeding (principal); R65.10 Systemic inflammatory response syndrome (SIRS) of non-infectious origin without acute organ dysfunction; E44.0 Moderate protein-calorie malnutrition; F17.210 Nicotine dependence, cigarettes, uncomplicated; R11.2 Nausea with vomiting, unspecified; R07.89 Other chest pain; E66.9 Obesity, unspecified; Z68.35 Body mass index [BMI] 35.0-35.9, adult
CPT/HCPCS: 36415; 71045; 71275; 74176; 78452; 80048; 80053; 80061; 82140; 82550; 82553; 83690; 84484; 85007; 85014; 85018; 85025; 85379; 87040; 87116; 93005; 93010; 93017; 96374; 96375; 99406; G0378; A9502; C9113; J2405; J2543; J2785; J7030; J7050; Q9967